=== PATIENT | female | born 1990 | race African-American/Black ===

== ENCOUNTER 2020-06-11 14:00 | Emergency (ER) | payer MEDICAID, SELFPAY ==
--- NOTE | ~2020-06-11 | US_ITS ---
EXAMINATION: US OB <=14 wk fetus w TV EXAM DATE: 06/11/2020 17:20 INDICATION: , vaginal bleeding. 1st trimester. TECHNIQUE: Pelvic obstetrical transabdominal sonogram was performed by a technologist. There are mu ltiple grayscale and Doppler images available for interpretation. There are no earlier studies of th is gestation for comparison. FINDINGS: Uterus measures 13.1 x 6.4 x 6.9 cm. There is intrauterine gestation sac. pole with heart rate confirmed at 129 beats per minute. The 6 mm crown-rump length corresponds to estimated g estational age by ultrasound of 6 weeks 3 days, estimated date of confinement 02/01/2021. Yolk sac is identified. There is a small subchorionic hemorrhage measuring 8 x 5 x 4 mm. Ovaries are morpholo gically normal. IMPRESSION: 1. Early live intrauterine gestation with small subchorionic hemorrhage. Reviewed, dictated and finalized at location A.
[2020-06-11 14:05] VITALS: BP 119/62; PULSE 70; RESP 16; TEMP 36.7; O2SAT 100
[2020-06-11 14:37] LABS: Basophils Percent Auto 0.5 % (0.2-1.2); Eosinophils Absolute Auto 0.2 K/mm3 (0-0.3); Eosinophils Percent Auto 3.2 % (0-4.4); Hemoglobin 11.9 g/dL (12.0-15.0); Immature Granulocyte Absolute 0.02 K/mm3 (0.00-0.031); Immature Granulocyte Percent A 0.3 % (0-0.5); Lymphocytes Percent Auto 47.1 % (18.3-44.2); Mean Corpuscular Hemoglobin 26.9 pg (26-34); Mean Platelet Volume 9.8 fl (7.4-10.4); Monocytes Absolute Auto 0.4 K/mm3 (0.1-0.6); Monocytes Percent Auto 7.4 % (2.6-8.5); Neutrophils Absolute Auto 2.5 K/mm3 (1.3-6.7); Neutrophils Percent Auto 41.5 % (45.5-73.1); Platelet Count Result 326 k/mm3 (150-375); Red Blood Count 4.43 M/mm3 (4.2-5.4); Red Cell Distribution Width 12.5 % (11.5-14.5); White Blood Count 5.9 K/mm3 (4.5-10.0)
[2020-06-11 14:44] LABS: Add Urine Microscopic? YES; Appearance Urine Clear (Clear); Bacteria Urine Trace /hpf; Bilirubin Urine Negative (Negative); Blood Urine Negative (Negative); Color Urine Yellow (Yellow); Glucose Urine UA Negative (Negative); Ketones Urine Negative (Negative); Leukocyte Esterase Ur Trace LEU/UL (Negative); Mucus Urine Rare /lpf; Nitrate Urine Negative (Negative); Protein Urine Negative (Negative); RBC Urine 0-2 /hpf (0-2); Renal Epithelial Cells Urine Rare /hpf (None Seen); Specific Grav Ur 1.019 (1.001-1.035); Squamous Epithelial Cell Urine Many /hpf (Few); WBC Urine 0-3 /hpf
[2020-06-11 14:48] LABS: Alanine Aminotransferase 18 U/L (4-35); Albumin Level 3.9 g/dL (3.5-5.1); Alkaline Phosphatase 56 U/L (38-126); Anion Gap 9.2 mmol/L (7-16); Aspartate Amino Transferase 21 U/L (14-36); Bilirubin,Total 0.8 mg/dL (0.2-1.3); Blood Urea Nitrogen 10 mg/dL (7-17); Calcium 9.1 mg/dL (8.4-10.2); Carbon Dioxide 24 mmol/L (22-30); Chloride 105 mmol/L (98-107); Estimated CRCL calculation 111 ml/min; Estimated Glomerular Filt Rate > 60; Glucose 98 mg/dL (65-105); Lipase 50 U/L (23-300); Potassium 4.2 mmol/L (3.4-5.0); Sodium 134 mmol/L (137-145)
--- NOTE | 2020-06-11 16:54 | ED.PREGNANCY ---
HPI - General Chief complaint: ACCOUNT DEVELOPER Stated complaint: abd pain Time Seen by Provider: 06/11/20 16:38 Source: patient Mode of arrival: ambulatory Limitations: no limitations History of Present Illness HPI Narrative: This patient is a 29 year old female G6 P who presents for evaluation and vaginal bleeding. PAtient states she took a test 2 weeks ago and it was positive. She developed lower abdominal cramping and vaginal spotting 2 days ago. She denies lightheaded, dizziness, nausea and vomiting. Related Data Home Medications Medication Instructions Recorded Confirmed No Home Medications 06/11/20 06/11/20 Allergies Allergy/AdvReac Type Severity Reaction Status Date / Time lisinopril Allergy Swelling Verified 06/11/20 17:22 Review of Systems Review of Systems: All systems reviewed & are unremarkable except as noted in HPI and below Constitutional: Constitutional: Denies chills and Denies fever(s) Respiratory: Respiratory: Denies cough and Denies dyspnea Gastrointestinal: Gastrointestinal: Reports abdominal pain, Denies nausea and Denies vomiting Genitourinary: Genitourinary: Reports abnormal vaginal bleeding and Reports pelvic pain PMFSH Past Medical History Medical History (Updated 06/11/20 @ 18:10 by Celeste Gunn MD) Patient denies medical problems Surgical History Surgical History (Updated 06/11/20 @ 18:08 by Celeste Gunn MD) H/O section Social History Social History (Updated 06/11/20 @ 18:08 by Celeste Gunn MD) Smoking status: Never smoker Alcohol intake: never Exam Const: General: alert Orientation/consciousness: patient oriented x3 Eyes: Pupils: Equal, round and reactive pupils present EOM: EOMs intact bilaterally Chest: Chest palpation & inspection: normal inspection of the chest Resp: Effort & Inspection: normal respiratory effort Auscultation: clear to auscultation bilaterally Cardio: Rate: regular rate Rhythm: regular rhythm Heart sounds: no murmurs GI: GI Palp: Yes Soft to palpation and No Tenderness to palpation present (GI) Auscultation: normal bowel sounds : Speculum Exam - Vagina: normal vaginal discharge and No vaginal bleeding Speculum Exam - Cervix: Cervical os closed Skin: General skin exam: normal color Rashes: no rashes Extrem: General: normal to inspection Course Reevaluation(s) Reevaluation #1: I discussed with patient that she is early with subchorionic bleeding. she was given pelvic rest and precautions. She has appointment with OB at [place] Date: 06/11/20 Time: 18:09 Vital Signs Vital signs: Vital Signs Temperature 98.0 F 06/11/20 14:05 Pulse Rate 70 06/11/20 14:05 Respiratory Rate 16 06/11/20 14:05 Blood Pressure 119/62 06/11/20 14:05 Pulse Oximetry 100 06/11/20 14:05 Temperature 98.0 F 06/11/20 14:05 Pulse Rate 73 06/11/20 17:20 Respiratory Rate 18 06/11/20 17:20 Blood Pressure 120/75 06/11/20 17:20 Pulse Oximetry 100 06/11/20 17:20 MDM - OB/Uterine Contractions Lab Data Attestation: I reviewed the patient's lab results. Result diagrams: 06/11/20 14:24 06/11/20 14:24 Labs: Lab Results 06/11/20 06/11/20 06/11/20 Range/Units 14:24 14:24 14:24 WBC 5.9 (4.5-10.0) K/mm3 RBC 4.43 (4.2-5.4) M/mm3 Hgb 11.9 L (12.0-15.0) g/dL Hct 35.0 L (37.0-47.0) % MCV 79.0 L (80-100) fl MCH 26.9 (26-34) pg MCHC 34.0 (32-36) g/dl RDW 12.5 (11.5-14.5) % Plt Count 326 (150-375) k/mm3 MPV 9.8 (7.4-10.4) fl Immature Gran % (Auto) 0.3 (0-0.5) % Neut % (Auto) 41.5 L (45.5-73.1) % Lymph % (Auto) 47.1 H (18.3-44.2) % [place] % (Auto) 7.4 (2.6-8.5) % Eos % (Auto) 3.2 (0-4.4) % Baso % (Auto) 0.5 (0.2-1.2) % Lymph # (Auto) 2.80 (0.9-3.2) K/mm3 [place] # (Auto) 0.4 (0.1-0.6) K/mm3 Eos # (Auto) 0.2 (0-0.3) K/mm3 Baso # (
[2020-06-11 17:20] VITALS: BP 120/75; PULSE 73; RESP 18; O2SAT 100
[2020-06-11 18:52] VITALS: BP 121/73; PULSE 84; RESP 18; O2SAT 98
== END 2020-06-11 18:56 | disposition home or self-care (01) ==
PROVIDERS: Emergency Medicine; Emergency Provider General Practice
DX: O46.8X1 Other antepartum hemorrhage, first trimester (principal); Z3A.01 Less than 8 weeks gestation of pregnancy
CPT/HCPCS: 36415; 76801; 76817; 80053; 81001; 81025; 83690; 84702; 85025; 85461; 99284